=== PATIENT | female | born 1995 | race Caucasian/White ===

== ENCOUNTER 2020-05-17 09:09 | Emergency (ER) | payer OTHER, SELFPAY ==
[~2020-05-17] VITALS: Ht 157.5 cm; Wt 68.0 kg
[2020-05-17 09:20] VITALS: BP_SYST 120
--- NOTE | 2020-05-17 09:25 | NUR ---
Patient to FT 3 to gown for evaluation. Side rails up.
--- NOTE | 2020-05-17 09:30 | NUR ---
ER at bedside examining patient.
--- NOTE | 2020-05-17 09:34 | NUR ---
pt arrives from home w/ c/o throat inflammation x 3 days. Pt also reports having problems swallowing
--- NOTE | 2020-05-17 09:35 | NUR ---
rapid and PCR covid collected and sent to the lab
[2020-05-17 10:34] VITALS: BP_SYST 120
--- NOTE | 2020-05-17 10:34 | NUR ---
Patient given written and verbal discharge instructions and verbalizes understanding. ER MD discussed with patient the results and treatment provided. Patient in stable condition. ID arm band removed. Patient educated on pain management and to follow up with PMD. Pain Scale 3/10. Opportunity for questions provided and answered. Medication side effect fact sheet provided.
== END 2020-05-17 10:34 | disposition home or self-care (01) ==
LOC: SED 09:09
DX: J02.9 Acute pharyngitis, unspecified (principal); Z20.822 Contact with and (suspected) exposure to COVID-19
CPT/HCPCS: 87426; 99283; C9803; U0003